=== PATIENT | male | born 1970 | race Caucasian/White ===

== ENCOUNTER 2017-03-26 07:26 | Emergency (ER) | payer OTHER ==
[~2017-03-26] VITALS: Ht 172.7 cm; Wt 113.4 kg
[2017-03-26] MEDS ORDERED: HYDROCODONE-AP1 EAC6 PO (07:44)
[2017-03-26] MEDS ORDERED: AMOXICILLIN 50500 MG PO (07:44)
[2017-03-26 07:49] LABS: ABSOLUTE EOSINOPHILS 0.1 thou/uL (0.0-0.7); ABSOLUTE LYMPHOCYTES 1.2 thou/uL (0.8-5.3); ABSOLUTE MONOCYTES 0.4 thou/uL (0.0-1.2); ABSOLUTE NEUTROPHILS 6.1 thou/uL (1.6-8.1); BASOPHILS 0.3 %; EOSINOPHILS 0.9 %; HEMATOCRIT 43.6 % (42.0-52.0); HEMOGLOBIN 14.7 gm/dL (14.0-18.0); MCH 28.4 pg (26.0-34.0); MCHC 33.8 g/dL (28.0-37.0); MPV 8.4 fl. (7.2-11.1); NUCLEATED RBCS 0 /100WBC; PLATELET COUNT* 215 thou/uL (150-400); POLYS 77.8 %; RBC 5.19 mil/uL (4.50-6.00); RDW-CV 13.6 % (10.5-14.5); WBC 7.8 thou/uL (4.0-11.0)
[2017-03-26 07:55] LABS: CALCIUM 8.7 mg/dL (8.5-10.1); CREATININE 1.1 mg/dL (0.6-1.3)
[2017-03-26 08:08] LABS: ALBUMIN 3.8 g/dL (3.4-5.0); TOTAL BILIRUBIN 0.6 mg/dL (<0.1-1.0); TOTAL PROTEIN 7.6 g/dL (6.4-8.2)
[2017-03-26 08:36] LABS: URINE BILIRUBIN NEGATIVE (Negative); URINE BLOOD 3+ (Negative); URINE CLARITY CLEAR; URINE COLOR YELLOW; URINE GLUCOSE-RANDOM NEGATIVE (Negative); URINE KETONES NEGATIVE (Negative); URINE LEUKOCYTES-REFLEX NEGATIVE (Negative); URINE NITRITE-REFLEX NEGATIVE (Negative); URINE PROTEIN NEGATIVE (Negative); URINE SPECIFIC GRAVITY 1.025 (1.005-1.030)
[2017-03-26 08:49] LABS: MUCUS 4-6 Moderate strn/LPF (None Seen); SQUAMOUS 0-3 Few /LPF (0-3)
[2017-03-26 08:50] LABS: CRYSTALS None Seen /LPF (None Seen); HYALINE CASTS 0-3 Few /LPF (None Seen); URINE RBC >20 Many /HPF (0-2); URINE WBC-REFLEX 0-5 Rare /HPF (0-5)
[2017-03-26 08:51] LABS: BACTERIA-REFLEX None Seen /HPF (None Seen)
[2017-03-26] MEDS ORDERED: FLOMAX0.4 MG PO (10:37)
[2017-03-26] MEDS ORDERED: ZOFRAN ODT4 MG PO (10:37)
[2017-03-26] MEDS ORDERED: TORADOL 10 MG T10 MG PO (10:37)
[2017-03-26 11:26] VITALS: BP 105/58
--- NOTE | 2017-03-26 13:25 | EKG ---
[place] [address] ELECTROCARDIOGRAM REPORT Name: AMANDAKAE Silvano Room: [facility]#: [id number] Admission: 03/26/17 Attend Phys: Discharge: 03/26/17 Date of : 70 Report #: [id number] THIS REPORT FOR: //name// [facility] ED Test Date: 2017-03-26 Test Time: 07:33:24 Pat Name: KAE PATEL Department: Room: Gender: M [employer]: : 1970 Requested By: Karla Courtney Order Number: [id number] Tete MD: Delfino Kelly Measurements Intervals [place] Rate: 63 P: 72 FL: 186 QRS: 28 QRSD: 92 T: 60 QT: 436 QTc: 447 Interpretive Statements Sinus rhythm ST elev, probable normal early repol pattern Baseline wander in lead(s) V2 No previous ECG available for comparison Electronically Signed On 03-26-2017 13:25:03 TREASURY CONSULTANT by Delfino Kelly [email or web address] <ELECTRONICALLY SIGNED> By: Delfino Kelly MD, [facility] 03/26/17 1325 0733 2 Delfino Kelly MD, FACC /EPI
== END 2017-03-26 11:27 | disposition home or self-care (01) ==
LOC: M.ERS 07:26
PROVIDERS: Personal Emergency Response Attendant
DX: N20.0 Calculus of kidney (principal); Z91.018 Allergy to other foods